=== PATIENT | female | born 1950 | race Caucasian/White ===

== ENCOUNTER 2022-06-18 14:35 | Emergency (ER) | payer OTHER | END 2022-06-18 16:40 | disposition home or self-care (01) | LOC: LL.ED 14:35 | DX: S52.611A Displaced fracture of right ulna styloid process, initial encounter for closed fracture (principal); Z88.0 Allergy status to penicillin; Z79.899 Other long term (current) drug therapy; W01.198A Fall on same level from slipping, tripping and stumbling with subsequent striking against other object, initial encounter | CPT/HCPCS: 73110-RT; 99283 ==